=== PATIENT | female | born 1930 | race Caucasian/White ===

== ENCOUNTER 2019-02-25 13:57 | Day surgery (SDC) | payer MEDICARE, BC ==
[~2019-02-25] VITALS: Ht 157.5 cm; Wt 63.6 kg
[~2019-02-25 13:57] MED LIST: CADUET 10 MG-101 TAB PO; GLUCOSAMINE PO; GLUCOSAMINE/CHONDROI PO; MVI; RANITIDINE 7575 MG PO; TYLENOL 325MG325 MG PO
[2019-02-25] MEDS ORDERED: FOSAMAX 70MG TA70 MG PO (14:40)
[2019-02-25] MEDS ORDERED: NORVASC 5MG5 MG/TAB PO (14:41)
[2019-02-25] MEDS ORDERED: ZYRTEC 10MG10 MG PO (14:42)
[2019-02-25] MEDS ORDERED: OPTIFLEX-C 4001 CAP (14:43)
[2019-02-25] MEDS ORDERED: VITAMIN D 1001000 IU (14:44)
[2019-02-25] MEDS ORDERED: ZANTAC 150MG T150 MG PO (14:48)
[2019-02-25] MEDS ORDERED: TYLENOL 8 HR PO (14:48)
[2019-02-25 14:54] VITALS: BP 136/65; PULSE 71; TEMP 97.6
--- NOTE | 2019-02-25 15:15 | NUR ---
Notified Daphnie ERIC that patient is in room 326
[2019-02-25 17:52] LABS: CALCIUM 9.5 mg/dL (8.4-10.2); CREATININE, serum 1.62 (0.52-1.25); MAGNESIUM 2.2 mg/dL (1.6-2.3); POTASSIUM 4.4 mmol/L (3.4-5.0)
--- NOTE | 2019-02-25 18:32 | NUR ---
Patient in bed resting. Has been seen by hospitalist, on bowel prep. Denies pain at this time. Denies further needs at this time. Independent in room.
--- NOTE | 2019-02-25 19:51 | NUR ---
Patient sitting at side of bed. Assessment completed- lungs clear, abdominal sounds active, pulses +3, cap refill <3 seconds, denies pain, alert and oriented, independent in room. Drinking bowel prep at this time. Discussed procedure scheduled for 09/1230 tomorrow. No further needs at this time.
[2019-02-25 20:44] VITALS: BP 136/69; PULSE 69; TEMP 97.9
[2019-02-26] VITALS (8 sets, daily range): BP systolic 122–146; BP diastolic 52–97; PULSE 58–86; TEMP 98.1–98.7
--- NOTE | 2019-02-26 05:00 | NUR ---
Pt slept on/off last night. No reports of pain, VSS. Will have 2nd round of bowel prep this am.
--- NOTE | 2019-02-26 07:04 | NUR ---
Report given to DIANDRA Tolbert.
--- NOTE | 2019-02-26 07:25 | NUR ---
Patient alert & oriented. Starting her second round of Mirlax with blue gatorade. She is still having loose stools. Int. Npo other than prep. Denies nausea. Independent in room. Sheldon cordero.
--- NOTE | 2019-02-26 10:07 | NUR ---
Patient has finished prep, she has spent most of the morning in the bathroom. Awaiting colonoscopy.
[2019-02-26] MEDS ORDERED: PROTONIX 40MG T40 MG PO (14:56)
--- NOTE | 2019-02-26 15:46 | NUR ---
SW met with patient about discharge planning. Patient lives independently at home by herself but her son visits regularly. Patient's PCP is Dr Ochoa and she obtains prescriptions from [facility]. Patient does not use any medical equipment or home health services. Patient's advanced directives are in the EMR. Patient will discharge later this afternoon. No discharge needs.
--- NOTE | 2019-02-26 17:07 | NUR ---
Patient has recovered well, post colonoscopy/egd. Her daughter taking her home. We reviewed all discharge paperwork. office called, they deny needing a follow up appt for patient. Int DC. She tolerated soft foods. Denies nausea.
== END 2019-02-26 17:10 | disposition home or self-care (01) ==
LOC: SDCO 13:57 → SURG 13:57 → SDCO 14:00 → SURG 14:12 → SDCO 02-26 14:00
PROVIDERS: Nurse Practitioner Family
DX: D12.0 Benign neoplasm of cecum (principal); D12.3 Benign neoplasm of transverse colon; D12.5 Benign neoplasm of sigmoid colon; Z86.010 Personal history of colon polyps; K57.30 Diverticulosis of large intestine without perforation or abscess without bleeding; K92.1 Melena; K21.0 Gastro-esophageal reflux disease with esophagitis; K44.9 Diaphragmatic hernia without obstruction or gangrene; I10 Essential (primary) hypertension; K59.00 Constipation, unspecified; Z83.3 Family history of diabetes mellitus; D50.0 Iron deficiency anemia secondary to blood loss (chronic); E78.00 Pure hypercholesterolemia, unspecified
CPT/HCPCS: OP; G0378; J2704; J3010; J7030

== ENCOUNTER 2021-08-20 15:40 | Emergency (ER) | payer MEDICARE, BC ==
[~2021-08-20] VITALS: Ht 165.1 cm; Wt 72.7 kg
[~2021-08-20 15:40] MED LIST changes: +FOSAMAX 70MG TA70 MG PO; +NORVASC 5MG5 MG/TAB PO; +OPTIFLEX-C 4001 CAP; +PROTONIX 40MG T40 MG PO; +TYLENOL 8 HR PO; +VITAMIN D 1001000 IU; +ZANTAC 150MG T150 MG PO; +ZYRTEC 10MG10 MG PO
[2021-08-20 15:43] VITALS: TEMP 98.2
[2021-08-20 16:25] LABS: BASO # 0.1 K/mm3 (0.0-0.2); BASO % 0.6 % (0.0-2.0); EOS # 0.3 K/mm3 (0.0-0.7); EOS % 2.8 % (0-4.0); GRAN # 7.5 K/mm3 (1.4-6.5); GRAN % 66.5 % (42.2-75.2); HEMOGLOBIN 10.3 g/dl (12.5-16.0); LYMPH # 2.4 K/mm3 (1.2-3.4); LYMPH % 21.5 % (20.0-51.0); MEAN CELL VOLUME 95 fl (80.0-100.0); MEAN CORPUSCULAR HEMOGLOBIN 31 pg (27.0-31.0); MEAN CORPUSCULAR HGB CONC 32 g/dl (33.0-37.0); MEAN PLATELET VOLUME 11.4 fl (7.4-10.4); MONO # 0.8 K/mm3 (0.1-0.6); MONO % 7.4 % (1.7-9.3); PLATELET COUNT 276 K/mm3 (130-400); RED BLOOD COUNT 3.36 M/mm3 (4.10-5.30); REDCELL DISTRIBUTION WIDTH-CV 13.5 % (11.5-14.5)
[2021-08-20 16:29] LABS: ALANINE AMINOTRANSFERASE 15 U/L (0-55); ALBUMIN 3.6 gm/dL (3.4-4.8); ALKALINE PHOSPHATASE 59 U/L (40-150); ANION GAP 11 mmol/L (7-16); AST,SGOT 17 U/L (5-34); BILIRUBIN,TOTAL 0.3 mg/dL (0.2-1.2); BLOOD UREA NITROGEN 31 mg/dL (10-20); CALCIUM 9.2 mg/dL (8.4-10.2); CARBON DIOXIDE 22 mmol/L (23-31); CHLORIDE 111 mmol/L (98-107); CREATININE, serum 1.56 mg/dL (0.57-1.11); GLUCOSE 112 mg/dL (70-99); SODIUM 144 mmol/L (136-145); TOTAL PROTEIN 7.6 gm/dL (6.2-8.1)
[2021-08-20 16:36] LABS: TROPONIN-I < 0.010 ng/mL (0.00-0.033)
[2021-08-20 16:53] LABS: COLLECTION METHOD CLEAN CATCH
[2021-08-20 17:01] LABS: MUCOUS Present /lpf; PH 7 (5-8); SQUAMOUS EPITHELIAL None Seen /hpf; URINE APPEARANCE Clear; URINE BACTERIA None Seen /hpf; URINE BILIRUBIN Negative (NEGATIVE); URINE BLOOD Negative (NEGATIVE); URINE COLOR Straw; URINE GLUCOSE Negative (NEGATIVE); URINE KETONE Negative (NEGATIVE); URINE LEUKOCYTE ESTERASE Negative (NEGATIVE); URINE NITRATE Negative (NEGATIVE); URINE PROTEIN(semi-quant) 2+ (NEGATIVE); URINE RBC 0-2 /hpf; URINE UROBILINOGEN Negative (NEGATIVE)
[2021-08-20] MEDS ORDERED: ONE-A-DAY ESSE1 EACH PO (20:24)
[2021-08-20] MEDS ORDERED: FLONASEALLERGY NS (20:25)
[2021-08-20] MEDS ORDERED: B-121000 MCG PO (20:25)
[2021-08-20] MEDS ORDERED: PEPCID 20MG TAB20 MG PO (20:25)
[2021-08-21 05:52] LABS: BASO # 0.1 K/mm3 (0.0-0.2); BASO % 0.4 % (0.0-2.0); EOS % 0.3 % (0-4.0); GRAN # 9.6 K/mm3 (1.4-6.5); GRAN % 81.1 % (42.2-75.2); LYMPH # 1.3 K/mm3 (1.2-3.4); LYMPH % 10.6 % (20.0-51.0); MEAN CELL VOLUME 92 fl (80.0-100.0); MEAN CORPUSCULAR HGB CONC 33 g/dl (33.0-37.0); MONO # 0.8 K/mm3 (0.1-0.6); PLATELET COUNT 242 K/mm3 (130-400); RED BLOOD COUNT 3.07 M/mm3 (4.10-5.30); REDCELL DISTRIBUTION WIDTH-CV 13.4 % (11.5-14.5)
[2021-08-21 05:56] LABS: HEMATOCRIT 28.3 % (37.0-47.0); HEMOGLOBIN 9.3 g/dl (12.5-16.0); MEAN CORPUSCULAR HEMOGLOBIN 30 pg (27.0-31.0)
[2021-08-21 06:08] LABS: CREATININE, serum 1.52 mg/dL (0.57-1.11); POTASSIUM 4.2 mmol/L (3.5-4.5)
--- NOTE | 2021-08-21 10:02 | NUR ---
Patient was brought to the emergency room and states patient has been accepted to [facility] for rigger care. student worker contacted Charli with the [facility] and faxed clinical information. Charli states they can accept patient to rigger care with PT/OT/ST billed to part B at anytime today. Worker spoke with provider, Anna, who will put in discharge orders after Dr Peck as seen the patient. Son is at bedside and we will plan for family to transport as [facility]'s transportation is extremely busy today. Charli stated he was going to call daughter and advise of private pay pricing. Worker notified Viji, patient's nurse of the above information.
[2021-08-21 12:20] VITALS: BP 136/55; PULSE 71
--- NOTE | 2021-08-21 12:38 | NUR ---
Workers Compensation Claims Analyst met with patient and patient's son, Keely (ph#[phone]) about plan for discharge to [facility]. Keely advised he will be able to transport patient there as long as he has assistance getting patient out of the car and into the facility. ANDREY contacted Charli who advised they will assist with this. ANDREY faxed discharge orders to Charli. No additional needs at this time.
== END 2021-08-21 12:20 | disposition home or self-care (01) ==
LOC: COL.ER 15:40
PROVIDERS: Emergency Medicine; Student in an Organized Health Care Education/Training Program
DX: S01.81XA Laceration without foreign body of other part of head, initial encounter (principal); I10 Essential (primary) hypertension; K21.9 Gastro-esophageal reflux disease without esophagitis; Z20.822 Contact with and (suspected) exposure to COVID-19; Z79.899 Other long term (current) drug therapy; W01.198A Fall on same level from slipping, tripping and stumbling with subsequent striking against other object, initial encounter
CPT/HCPCS: J2270; J2405